=== PATIENT | male | born 1975 | race Caucasian/White ===

== ENCOUNTER 2016-09-25 06:45 | Emergency (ER) | payer OTHER ==
[2016-09-25 05:17] LABS: BASOPHILS 0.4 %; BASOPHILS ABSOLUTE 0.03 10/3/uL (0.0-0.16); EOSINOPHILS 1.4 %; HEMOGLOBIN 15.8 g/dL (13.6-17.8); IMMATURE GRANULOCYTES 0.3 %; IMMATURE GRANULOCYTES ABSOLUTE 0.02 10/3/uL (0.0-0.11); LYMPHOCYTES 28.9 %; LYMPHOCYTES ABSOLUTE 2.09 10/3/uL (0.67-4.30); MEAN CORPUS HGB CONC 34.8 g/dL (32.0-36.0); MEAN CORPUSCULAR HEMOGLOB 30.7 pg (26.0-34.0); MEAN CORPUSCULAR VOLUME 88.3 fL (80-100); MONOCYTES 10.2 %; MONOCYTES ABSOLUTE 0.74 10/3/uL (0.21-1.20); NEUTROPHILS 58.8 %; NEUTROPHILS ABSOLUTE 4.25 10/3/uL (2.02-8.40); PLATELET COUNT 194 10/3/uL (150-400); RED CELL COUNT 5.14 10/6/uL (4.7-6.1); WHITE BLOOD CELLS 7.2 10/3/uL (4.5-10.5)
[2016-09-25 05:18] LABS: ER CBC TAT 0 Hrs 07 MinsNP; HEMATOCRIT 45.4 % (40.0-51.0); MANUAL DIFF NO %
[2016-09-25 05:29] LABS: CHLORIDE, SERUM 104 MMOL/L (96-112); CO2 (CARBON DIOXIDE) 29 MMOL/L (24-34); CREATININE 1.13 MG/DL (0.70-1.30); GFR AFRICAN AMERICAN 92 ML/MIN (>=60); GFR NON AFRICAN AMERICAN 80 ML/MIN (>=60); POTASSIUM, SERUM 3.8 MMOL/L (3.5-5.3); SODIUM, SERUM 141 MMOL/L (135-148)
[2016-09-25 05:30] LABS: BUN (BLOOD UREA NITROGEN) 17 MG/DL (6-23); GLUCOSE, SERUM 121 MG/DL (60-99)
[~2016-09-25 06:45] MED LIST: LORT7 PO; LOTE10 PO; V2 PO
== END 2016-09-25 07:30 | disposition home or self-care (01) ==
LOC: ER 06:45
PROVIDERS: Specialist
DX: T83.098A Other mechanical complication of other urinary catheter, initial encounter (principal); R31.9 Hematuria, unspecified; I10 Essential (primary) hypertension; Z87.442 Personal history of urinary calculi; Z79.899 Other long term (current) drug therapy
CPT/HCPCS: 74420; 80048; 81001; 85025; 99283

== ENCOUNTER 2016-09-25 11:50 | Day surgery (SDC) | payer OTHER ==
--- NOTE | ~2016-09-25 | OP ---
Record Of Operation [facility] [address] [place]. [address] NAME: NAGA ZABALA : 73 STATUS : [facility]#: [id number] AGE: 41 ADM/REG DATE : 09/25/16 MR#: [id number] REPORT SERV DATE: 09/25/16 DICTATED BY: Juan Francisco MCPHERSON DATE: 09/25/16 REPORT STATUS : Draft TRANSCRIBED BY: MODL DATE: 09/25/16 DATE OF PROCEDURE: 09/25/2016 PREOPERATIVE DIAGNOSIS: Gross hematuria with clot retention. POSTOPERATIVE DIAGNOSIS: Gross hematuria with clot retention, unknown etiology. PROCEDURES: Cystoscopy, clot evacuation, bilateral retrograde pyelography, examination under anesthesia. SURGEON: Juan Francisco Mcpherson M.D. ANESTHESIA: General. COMPLICATIONS: None. DRAINS: 18-B[place] Bingham catheter. BRIEF HISTORY: Mr. Zabala is a 41-year-old white male, not seen by me in several years, who went to the emergency room yesterday with gross hematuria. A catheter was placed and he was found to be in retention. He has needed irrigation several more times. A noncontrast CT was performed and showed hemorrhage in the bladder, but no upper tract abnormality. He does have a history of stones, but no ureteral stones were identified. I saw him in the office yesterday and proposed the above procedure. We also discussed the possible need for bladder biopsy, TURBT, etc. The risks of bleeding, infection, anesthesia, etc., were all discussed. He apparently has had an evaluation for this in the past, although I do not have those records available. DESCRIPTION OF PROCEDURE: Under excellent general anesthesia, the patient was prepped and draped in the standard lithotomy position. Digital exam revealed a 1+ symmetric, smooth prostate gland. He had a normal-appearing scrotum, normal-appearing partially circumcised penis. Cystoscopy was performed with 30- and 70-degree lenses, revealed a normal anterior urethra. The posterior urethra showed some prominent blood vessels near the apex of the prostate, but is a nonobstructing prostate gland with no evidence of active hemorrhage. Inspection of the bladder revealed no active hemorrhage as well, but a large clot in the middle of the bladder that ultimately was probably 10-15 mL in volume. The orifices appeared normal and there was no evidence of bleeding from either orifice. An 8-B[place]wan[place] cone tipped catheter was used first to perform a left retrograde pyelogram, which showed a normal caliber ureter without filling defect or obstruction. Similarly, the right ureter was cannulated and a right retrograde pyelogram showed a normal caliber ureter without filling defect or obstruction. I then gently inserted the 25-B[place] Storz cystoscope sheath, and using the [employer] evacuator, was able to evacuate the entirety of this clot. I again inspected the bladder carefully with both the 30- and 70-degree lenses, and except for seeing a few prominent vessels due to catheter reaction and/or irrigation, I saw no lesion that I felt warranted biopsy or excision and saw no active bleeding. I am a little bit confused at this point, but I saw nothing else that needed to be done today. I inserted an Record Of Operation [address] [place]. [address] NAME: NAGA ZABALA : 73 STATUS : [facility]#: [id number] AGE: 41 ADM/REG DATE : 09/25/16 MR#: [id number] REPORT SERV DATE: 09/25/16 DICTATED BY: Juan Francisco MCPHERSON DATE: 09/25/16 REPORT STATUS : Draft TRANSCRIBED BY: MODL DATE: 09/25/16 18-[place] Bingham catheter and plan to discharge Mr. Zabala as an outpatient with the following instructions. DISCHARGE INSTRUCTIONS: 1. Remove catheter after the patient awakens from anesthesia. 2. Pyridium 200 mg one p.o. t.i.d., p.r.n. bladder pain, #15. 3. I will ask them to schedule him for an outpatient CT urogram and then follow up with me after this to try to assess any small lesion that a noncontrast scan could have missed. We will proceed as indicated following that. If they are unable to schedule this in the hospital, then he should call my office so we could schedule it. THIAGO/CHEVY Juan Francisco Mcpherson M.D. / [id number] CC: Pierre Byrd SHEENA
== END 2016-09-25 16:36 | disposition home or self-care (01) ==
LOC: SDC 11:50
PROC: BT14ZZZ Fluoroscopy of Kidneys, Ureters and Bladder (ICD-10-PCS; 2016-09-25)
PROC: 0TCB8ZZ Extirpation of Matter from Bladder, Via Natural or Artificial Opening Endoscopic (ICD-10-PCS; principal; 2016-09-25 12:45)
DX: R31.0 Gross hematuria (principal); I10 Essential (primary) hypertension; R33.8 Other retention of urine; Z87.442 Personal history of urinary calculi; Z98.890 Other specified postprocedural states
CPT/HCPCS: 74420; 80048; 81001; 85025; 93005; 99283; J2250; J2270; J2405; J2710; J3010; Q9967